=== PATIENT | male | born 1965 | race African-American/Black ===

== ENCOUNTER 2022-10-09 09:55 | Emergency (ER) | payer OTHER ==
[~2022-10-09] VITALS: Ht 193 cm; Wt 129.3 kg
[2022-10-09] MEDS ORDERED: AMLO10 PO (10:16)
== END 2022-10-09 10:20 | disposition home or self-care (01) ==
LOC: ER 09:55
DX: Z76.0 Encounter for issue of repeat prescription (principal); I10 Essential (primary) hypertension; Z79.899 Other long term (current) drug therapy
CPT/HCPCS: 99281